=== PATIENT | male | born 1965 | race Caucasian/White ===

== ENCOUNTER 2018-01-30 10:03 | Emergency (ER) | payer BC ==
[2018-01-30] MEDS ORDERED: Vancomycin(*) 1,000 MG in NS 0.9% 250 ML* 250 ML IVPB ONE (10:47)
[2018-01-30 11:19] LABS: ABS Basophils 0.1 10^3/ul (0-0.2); ABS Eosinophils 0.4 10^3/ul (0-0.6); ABS Lymphocytes 2.6 10^3/ul (1.0-4.8); ABS Monocytes 1.1 10^3/ul (0-0.8); ABS Neutrophils 7.8 10^3/ul (1.5-7.7); ABS Nucleated RBC 0 10^3/ul; Eosinophil % 3.6 % (0-6); Hematocrit 44 % (42-52); Hemoglobin 14.8 g/dl (14.0-18.0); Lymphocyte % 21.3 % (25-47); Mean Corpuscular HGB Conc 34 g/dl (31-36); Mean Corpuscular Hemoglobin 27 pg (27-31); Mean Corpuscular Volume 80 fL (80-94); Mean Platelet Volume 7.7 um3 (7.4-10.4); Nucleated Red Blood Cells % 0.1; Platelet Count 201 10^3/ul (150-450); Red Blood Count 5.52 10^6/ul (4.00-5.40); Red Cell Distribution Width 14 % (10.5-15)
[2018-01-30 11:42] LABS: INR 1.07 (0.77-1.02)
[2018-01-30 14:12] VITALS: BP 110/71
--- NOTE | 2018-01-30 18:23 | ED ---
Bibi Cano Jade, scribed for Chandra Noonan MD on 01/30/18 at 1053 . Skin Complaint - HPI Summary HPI Summary: Pt is a 52 y/o male who presents to the ED c/o abscess. He states he has a small cyst over his left butt cheek that occasionally flares up for a day at a time, but usually resolves itself. 2 days ago, it began to flare up, so he took Augmentin and Ibuprofen. Pt states yesterday at 20:00 the abscess grew much larger and became painful, rating it an 8/10 in intensity. It is now hard to walk, and too painful to sit down. Pt also complains of fever, chills, nausea, and malaise. He is otherwise healthy, and denies any PMHx MRSA. - History of Current Complaint Chief Complaint: EDRashSkinAbscess Time Seen by Provider: 01/30/18 10:39 Stated Complaint: ABSCESS Hx Obtained From: Patient Onset/Duration: Started Days Ago - 2, Still Present Timing: Constant Current Severity: Severe Pain Intensity: 8 Pain Scale Used: 0-10 Numeric Skin Location: Other: - Left butt Aggravating Symptom(s): Other: - Walking, sitting Associated Signs & Symptoms: Nausea, Fever, Chills - Allergy/Home Medications Allergies/Adverse Reactions: Allergies Allergy/AdvReac Type Severity Reaction Status Date / Time No Known Allergies Allergy Verified 08/08/16 10:59 PMH/Surg Hx/FS Hx/Imm Hx Endocrine/Hematology History: Denies: Hx Diabetes, Hx Thyroid Disease Cardiovascular History: Denies: Hx Hypertension, Hx Pacemaker/ICD Respiratory History: Denies: Hx Asthma, Hx Chronic Obstructive Pulmonary Disease (COPD) GI History: Denies: Hx Ulcer Sensory History: Denies: Hx Hearing Aid Psychiatric History: Denies: Hx Panic Disorder - Surgical History Surgery Procedure, Year, and Place: 2012 C3/C4;. CYSTOSCOPIC REMOVAL OF STONE; Infectious Disease History: No Infectious Disease History: Denies: Hx Clostridium Difficile, Hx Hepatitis, Hx Human Immunodeficiency Virus (HIV), Hx of Known/Suspected MRSA, Hx Shingles, Hx Tuberculosis, Hx Known/ Suspected VRE, Hx Known/Suspected VRSA, History Other Infectious Disease, Traveled Outside the [place] in Last 30 Days - Family History Known Family History: Negative: Blood Disorder - Social History Alcohol Use: None Substance Use Type: Reports: None Smoking Status (MU): Never Smoked Tobacco Review of Systems Positive: Fever, Chills, Other - Malaise Positive: Nausea Positive: Other - Abscess over left butt All Other Systems Reviewed And Are Negative: Yes Physical Exam - Summary Physical Exam Summary: General: well-appearing, no pain distress Skin: warm, color reflects adequate perfusion, dry. Large firm area on medial left butt. Firmness extends within 2 cm of the anus. No obvious head. Swelling. Head: normal Eyes: EOMI, JOSE ANGEL ENT: normal Neck: supple, nontender Respiratory: CTA, breath sounds present Cardiovascular: RRR Abdomen: soft, nontender Bowel: present Musculoskeletal: normal, strength/ROM intact Neurological: sensory/motor intact, A&O x3 Psychological: affect/mood appropriate Triage Information Reviewed: Yes Vital Signs On Initial Exam: Initial Vitals Temp Pulse Resp BP Pulse Ox 97.6 F 93 20 146/88 97 01/30/18 10:19 01/30/18 10:19 01/30/18 10:19 01/30/18 10:19 01/30/18 10:19 Vital Signs Reviewed: Yes Procedures - Incision and Drainage Left Medial Buttocks Site: Betadine prep. Serosanguineous fluid drained. Anesthesia: Lidocaine - 1% Instrument(s): Scalpel - #11, Needle Packing: Gauze - Iodoform Diagnostics - Vital Signs Vital Signs Temp Pulse Resp BP Pulse Ox 01/30/18 10:19 97.6 F 93 20 146/88 97 - Laboratory Lab Results: Lab Results 01/30/18 01/30/18 01/30/18 Range/Units 11:06 11:06 11:06 WBC 12.0 H (3.5-10.8) 10^3/ul RBC 5.52 H (4.00-5.40) 10^6/ul Hgb 14.8 (14.0-18.0) g/dl Hct 44 (42-52) % MCV 80 (80-94) fL MCH 27 (27-31) pg MCHC 34 (31-36) g/dl RDW 14 (10.5-15) % Plt Count 201 (150-450) 10^3/ul MPV 7.7 (7.4-10.4) um3 Neut % (Auto) 65.0 (38-83) % Lymph % (Auto) 21.3 L (25-47) % [place] % (Auto) 9.3 H (0-7) % Eos % (Auto) 3.6 (0-6) % Baso % (Auto) 0.8 (0-2) % Absolute Neuts (auto) 7.8 H (1.5-7.7) 10^3/ul Absolute Lymphs (auto) 2.6 (1.0-4.8) 10^3/ul Absolute Monos (auto) 1.1 H (0-0.8) 10^3/ul Absolute Eos (auto) 0.4 (0-0.6) 10^3/ul Absolute Basos (auto) 0.1 (0-0.2) 10^3/ul Absolute Nucleated RBC 0 10^3/ul Nucleated RBC % 0.1 INR (Anticoag Therapy) 1.07 H (0.77-1.02) APTT 27.9 (26.0-36.3) seconds Sodium 136 (135-145) mmol/L Potassium 3.7 (3.5-5.0) mmol/L Chloride 104 (101-111) mmol/L Carbon Dioxide 23 (22-32) mmol/L Anion Gap 9 (2-11) mmol/L BUN 15 (6-24) mg/dL Creatinine 1.10 (0.67-1.17) mg/dL Est GFR ( Amer) 90.1 (>60) Est GFR (Non-Af Amer) 70.0 (>60) BUN/Creatinine Ratio 13.6 (8-20) Glucose 109 H (70-100) mg/dL Lactic Acid (0.5-2.0) mmol/L Calcium 9.2 (8.6-10.3) mg/dL Total Bilirubin 1.10 H (0.2-1.0) mg/dL AST 23 (13-39) U/L ALT 19 (7-52) U/L Alkaline Phosphatase 56 (34-104) U/L C-Reactive Protein 96.63 H (< 5.00) mg/L Total Protein 7.6 (6.4-8.9) g/dL Albumin 4.1 (3.2-5.2) g/dL Globulin 3.5 (2-4) g/dL Albumin/Globulin Ratio 1.2 (1-3) 06/17/18 Range/Units 11:06 WBC (3.5-10.8) 10^3/ul RBC (4.00-5.40) 10^6/ul Hgb (14.0-18.0) g/dl Hct (42-52) % MCV (80-94) fL MCH (27-31) pg MCHC (31-36) g/dl RDW (10.5-15) % Plt Count (150-450) 10^3/ul MPV (7.4-10.4) um3 Neut % (Auto) (38-83) % Lymph % (Auto) (25-47) % [place] % (Auto) (0-7) % Eos % (Auto) (0-6) % Baso % (Auto) (0-2) % Absolute Neuts (auto) (1.5-7.7) 10^3/ul Absolute Lymphs (auto) (1.0-4.8) 10^3/ul Absolute Monos (auto) (0-0.8) 10^3/ul Absolute Eos (auto) (0-0.6) 10^3/ul Absolute Basos (auto) (0-0.2) 10^3/ul Absolute Nucleated RBC 10^3/ul Nucleated RBC % INR (Anticoag Therapy) (0.77-1.02) APTT (26.0-36.3) seconds Sodium (135-145) mmol/L Potassium (3.5-5.0) mmol/L Chloride (101-111) mmol/L Carbon Dioxide (22-32) mmol/L Anion Gap (2-11) mmol/L BUN (6-24) mg/dL Creatinine (0.67-1.17) mg/dL Est GFR ( Amer) (>60) Est GFR (Non-Af Amer) (>60) BUN/Creatinine Ratio (8-20) Glucose (70-100) mg/dL Lactic Acid 1.4 (0.5-2.0) mmol/L Calcium (8.6-10.3) mg/dL Total Bilirubin (0.2-1.0) mg/dL AST (13-39) U/L ALT (7-52) U/L Alkaline Phosphatase (34-104) U/L C-Reactive Protein (< 5.00) mg/L Total Protein (6.4-8.9) g/dL Albumin (3.2-5.2) g/dL Globulin (2-4) g/dL Albumin/Globulin Ratio (1-3) Result Diagrams: 01/30/18 11:06 01/30/18 11:06 Lab Statement: Any lab studies that have been ordered have been reviewed, and results considered in the medical decision making process. Course/Dx - Course Course Of Treatment: THE ABSCESS BY PALPATION DOES NOT FEEL LIKE IT EXTENDS TO THE ANUS. F/U SURGERY; RETURN IF WORSE. - Diagnoses Provider Diagnoses: Left buttock abscess Discharge - Sign-Out/Discharge Documenting (check all that apply): Discharge/Admit/Transfer - Discharge - Discharge Plan Condition: Stable Disposition: HOME Prescriptions: Amoxicillin/Clavulanate TAB* [Augmentin TAB 875*] 875 mg PO BID #20 tab Ibuprofen TAB* [Motrin TAB* 800 MG] 800 mg PO Q8H PRN #20 tab PRN Reason: Pain Sulfamethox/Trimethoprim DS* [Bactrim DS 800/160 TAB*] 1 tab PO BID #20 tab Patient Education Materials: Abscess (ED) Referrals: [facility] [Provider Group] Melissa Patiño MD [Medical Doctor] - Óscar Byrd MD [Primary Care Provider] - Additional Instructions: FOLLOW UP WITH SURGERY FOR FURTHER CARE OF YOUR LEFT BUTTOCK ABSCESS. RETURN TO THE EMERGENCY DEPARTMENT FOR ANY WORSENING OF YOUR CONDITION; PAIN, FEVER, YOU FEEL ILL OR QUESTIONS OR CONCERNS. - Billing Disposition and Condition Condition: STABLE Disposition: Home The documentation as recorded by the Bibi bryant Jade accurately reflects the service I personally performed and the decisions made by me, Chandra Noonan MD.
--- NOTE | 2018-02-01 09:15 | PN ---
Progress Note - Progress Note Date of Service: 01/30/18 Note: Pt. seen in the ER 01/30/18 for buttocks abscess. Wound and blood cultures were obtained at that time. Pt. was placed on Augmentin and Bactrim and referred to surgery. Anaerobic blood culture today is growing e. coli susceptible to bactrim and pnc. I called and spoke with pt. today around 0848 and discussed results. 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 He states he believes he has had intermittent fever. Wound culture is negative for MRSA, and growing e. coli and strep. Pt. will f.u with surgery and return to ER if symptoms change or worsen.
--- NOTE | 2018-02-04 06:35 | PN ---
Progress Note - Progress Note Date of Service: 02/04/18 Note: Patient was seen for left buttock abscess. Placed on augmentin and bactrim Both susceptible to e. coli which was found in blood cultures Patient had started yesterday he had already followed up with surgery and had 1 episode of intermittent fever No change to medications or plan at this time. Elsy Ribera PA-C
== END 2018-01-30 14:09 | disposition home or self-care (01) ==
LOC: ED 10:03
DX: L02.31 Cutaneous abscess of buttock (principal)
CPT/HCPCS: 10060; 36415; 80053; 83605; 85025; 85610; 85730; 86140; 87040; 87070; 87077; 87186; 87205; 87640; 87641; 96365; 99283; J3370